=== PATIENT | female | born 2000 | race Caucasian/White ===

== ENCOUNTER 2020-03-04 19:50 | Emergency (ER) | payer OTHER ==
[~2020-03-04] VITALS: Ht 165.1 cm; Wt 90.7 kg
[2020-03-04 20:00] VITALS: BP_SYST 114
--- NOTE | 2020-03-04 20:30 | NUR ---
Patient to ER bed 8 to gown for evaluation. Side rails up. REPORT RECEIVED FROM MANDI JOHNSON.
--- NOTE | 2020-03-04 20:40 | NUR ---
PT A&O X4 FROM HOME C/O OF SORE THROAT ON RIGHT SIDE SINCE WEDNESDAY. PT C/O OF DIFFICULTY EATING/DRINKING AND SWALLOWING DUE TO PAIN. PATIENT RATES PAIN 8/10. PT TONSILS APPEAR TO TO SWOLLEN, TENDER, RED, AND SMALL WHITE PATCHES. PT DENIES NAUSEA, VOMITING, DIARRHEA, FEVER, CHILLS, FATIGUE, COUGH, SHORTNESS OF BREATH.
--- NOTE | 2020-03-04 20:45 | NUR ---
ER Dr. RAMSEY at bedside examining patient.
[2020-03-04] MEDS ORDERED: cefTRIAXone 1 GM in LIDOCAINE 1%, 20 ML MDV 2.1 ML IM ONE (21:00)
[2020-03-04] MEDS ORDERED: KETOROLAC TROMETHAMINE 30 MG VIAL IM ONE (21:00)
--- NOTE | 2020-03-04 21:49 | NUR ---
pt reports pain has decreased to a 3 out of 10.
[2020-03-04 21:56] VITALS: BP_SYST 122
--- NOTE | 2020-03-04 21:56 | NUR ---
Patient given written and verbal discharge instructions and verbalizes understanding. ER MD discussed with patient the results and treatment provided. Patient in stable condition. ID arm band removed. Rx of amoxicillin, ibuprofen, acetaminophen given. Patient educated on pain management and to follow up with PMD. Pain Scale 2/10. Opportunity for questions provided and answered. Medication side effect fact sheet provided.
== END 2020-03-04 21:56 | disposition home or self-care (01) ==
LOC: SED 19:50
DX: J02.0 Streptococcal pharyngitis (principal)
CPT/HCPCS: 36415; 86403; 96372; 99284; J0696; J1885; J2001